=== PATIENT | female | born 1975 | race Caucasian/White ===

== ENCOUNTER 2017-06-29 16:53 | Emergency (ER) | payer BC ==
[2017-06-29] MEDS ORDERED: Sodium Chloride 0.9% 1,000 ML IV SCH (17:00)
--- NOTE | 2017-06-29 18:12 | EDM.PDOC ---
ED HPI GENERAL MEDICAL PROBLEM - General Chief Complaint: Exposure to Heat or Cold Stated Complaint: FELL THROUGH ICE Time Seen by Provider: 06/29/17 18:06 Source of Information: Reports: Patient, EMS, Police History Limitations: Reports: No Limitations - History of Present Illness INITIAL COMMENTS - FREE TEXT/NARRATIVE: pt arrived after [place] They were on a [address] in the middle of the [place] and went through. The pt was able to grab on the ice. Her kept going under and she grabbed him and kept ahold. he did go under several times and ended up getting air lifted to [place]. Onset: Today Duration: Hour(s): Location: Reports: Generalized Improves with: Reports: Other (pt was hypothermic) Associated Symptoms: Reports: Other ( Pt was shivering. She had a 35 or 36 temp on arrival. She had been warmed in the ambulance. 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 ) HEENT: Reports: No Symptoms Respiratory: Reports: No Symptoms Cardiovascular: Reports: No Symptoms Endocrine: Reports: No Symptoms GI/Abdominal: Reports: No Symptoms : Reports: No Symptoms Musculoskeletal: Reports: No Symptoms Skin: Reports: No Symptoms Neurological: Reports: No Symptoms Psychiatric: Reports: Anxiety ED EXAM, GENERAL - Physical Exam Exam: See Below Free Text/Narrative:: pt arrived with a history of going into the [place] with her on a 4 [place]. She was able to keep ahold of jher who kept going under. She was found to have a temp of 36. Exam Limited By: No Limitations General Appearance: Alert, Moderate Distress Ears: Normal TMs Nose: Normal Inspection Throat/Mouth: Normal Inspection Head: Atraumatic Neck: Normal Inspection Respiratory/Chest: No Respiratory Distress Cardiovascular: Regular Rate, Rhythm GI/Abdominal: Soft, Non-Tender (Female) Exam: Deferred Rectal (Female) Exam: Deferred Back Exam: Normal Inspection Extremities: Pallor ( feet were very cold and not painful), Other Neurological: Alert, Oriented, Normal Cognition Course - Vital Signs Last Recorded V/S: Last Vital Signs Temp 36.8 C 06/29/17 17:58 Pulse 118 H 06/29/17 17:58 Resp 16 06/29/17 17:58 BP 114/75 06/29/17 17:58 Pulse Ox 100 06/29/17 17:58 - Orders/Labs/Meds Orders: Active Orders 24 hr Category Date Time Status Sodium Chloride 0.9% [Normal Saline] 1,000 ml Med 06/29/17 17:00 Active IV ASDIRECTED Medication Orders Sodium Chloride (Normal Saline) 1,000 mls @ 999 mls/hr IV ASDIRECTED ARLINE Last Admin: 06/29/17 17:20 Dose: 999 mls/hr Labs: Laboratory Tests 06/29/17 06/29/17 Range/Units 17:13 17:13 WBC 9.2 (4.5-11.0) K/uL RBC 4.84 (3.30-5.50) M/uL Hgb 15.4 H (12.0-15.0) g/dL Hct 45.0 (36.0-48.0) % MCV 93 (80-98) fL MCH 32 H (27-31) pg MCHC 34 (32-36) % Plt Count 288 (150-400) K/uL Neut % (Auto) 70 H (36-66) % Lymph % (Auto) 19 L (24-44) % [place] % (Auto) 8 H (2-6) % Eos % (Auto) 3 (2-4) % Baso % (Auto) 0 (0-1) % Sodium 141 (140-148) mmol/L Potassium 4.2 (3.6-5.2) mmol/L Chloride 103 (100-108) mmol/L Carbon Dioxide 28 (21-32) mmol/L Anion Gap 9.9 (5.0-14.0) mmol/L BUN 15 (7-18) mg/dL Creatinine 0.7 (0.6-1.0) mg/dL Est Cr Clr Drug Dosing 102.85 mL/min Estimated GFR (MDRD) > 60 (>60) Glucose 84 (74-106) mg/dL Calcium 9.1 (8.5-10.1) mg/dL Meds: Medications Generic Name Dose Route Start Last Admin Trade Name Freq PRN Reason Stop Dose Admin Sodium Chloride 1,000 mls @ 999 mls/hr 06/29/17 17:00 06/29/17 17:20 Normal Saline IV 999 mls/hr ASDIRECTED ARLINE Administration - Re-Assessments/Exams Free Text/Narrative Re-Assessment/Exam: 06/29/17 18:13 pt was warmed with warm fluids, bear hugger and warm blankets. Her lab work was normal. 06/29/17 18:18 pt is looking good. her temp is up to normal will plan o discharge. Departure - Departure Time of Disposition: 18:19 Disposition: Home, Self-Care 01 Condition: Fair Clinical Impression: Hypothermia - Discharge Information Referrals: PCP,None [Primary Care Provider] - Forms: ED Department Discharge Care Plan Goals: rtc if problems. - My Orders Last 24 Hours: My Active Orders 06/29/17 17:00 Sodium Chloride 0.9% [Normal Saline] 1,000 ml IV ASDIRECTED - Assessment/Plan Last 24 Hours: My Active Orders 06/29/17 17:00 Sodium Chloride 0.9% [Normal Saline] 1,000 ml IV ASDIRECTED
== END 2017-06-29 19:08 | disposition home or self-care (01) ==
LOC: JP.ED 16:53
DX: T68.XXXA Hypothermia, initial encounter (principal); Z88.8 Allergy status to other drugs, medicaments and biological substances; Z91.09 Other allergy status, other than to drugs and biological substances; X31.XXXA Exposure to excessive natural cold, initial encounter
CPT/HCPCS: 36415; 80048; 85025; 96360; 99283; J7040

== ENCOUNTER 2022-06-24 21:10 | Emergency (ER) | payer BC ==
[2022-06-24] MEDS ORDERED: Phenazopyridine 95 MG Tab PO ONE (21:40)
== END 2022-06-24 22:13 | disposition home or self-care (01) ==
LOC: JP.ED 21:10
DX: N30.00 Acute cystitis without hematuria (principal); Z88.8 Allergy status to other drugs, medicaments and biological substances; Z91.048 Other nonmedicinal substance allergy status
CPT/HCPCS: 81001; 87086; 87088; 87186; 99283; A9270

== ENCOUNTER 2024-04-05 06:13 | Day surgery (SDC) | payer BC ==
[2024-04-05 06:42] LABS: HEMOGLOBIN 13.7 g/dL (11.2-15.5); MEAN CORPUSCULAR HEMOGLOBIN 32.2 pg (31.6-35.5); MEAN CORPUSCULAR HGB CONC 35.1 g/dL (31.6-35.5); MEAN CORPUSCULAR VOLUME 91.8 fL (81.4-99.0); RED BLOOD CELL COUNT 4.25 M/uL (3.77-5.24)
[2024-04-05] MEDS: Nozin Nasal Sanitizer NASBOTH SCH ×2 (06:57→20:59)
[2024-04-05 07:13] LABS: A/G RATIO 1.2 (1.2-2.2); ALANINE AMINOTRANSFERASE,ALT 38 U/L (12-78); ALBUMIN 3.4 g/dL (3.4-5.0); ALKALINE PHOSPHATASE 62 U/L (46-116); ANION GAP 9.6 mmol/L (5.0-14.0); ASPARTATE AMNIOTRANSFERASE,AST 8 U/L (15-37); BILIRUBIN TOTAL 0.7 mg/dL (0.2-1.0); BLOOD UREA NITROGEN,BUN 14 mg/dL (7-18); CARBON DIOXIDE,CO2 26 mmol/L (21-32); CHLORIDE,CL 106 mmol/L (100-108); CREATININE 0.8 mg/dL (0.6-1.0); EST CRCL DRUG DOSING (CG) 83.63 mL/min; ESTIMATED GFR 91 mL/min (>60); GLUCOSE RANDOM 86 mg/dL (74-106); POTASSIUM,K 3.6 mmol/L (3.6-5.2); PROTEIN TOTAL,TP 6.2 g/dL (6.4-8.2); SODIUM,NA 142 mmol/L (140-148)
[2024-04-05] MEDS ORDERED: fentaNYL 100 MCG/2 ML SDV ONE ×4 (07:19→10:41)
[2024-04-05] MEDS ORDERED: Propofol 200 MG/20 ML SDV ONE ×6 (07:19→10:20)
[2024-04-05] MEDS ORDERED: Midazolam 1 MG/ML 2 ML SDV ONE ×2 (07:19→09:10)
[2024-04-05] MEDS: Lactated Ringers 1,000 ML IV SCH (07:27)
[2024-04-05] MEDS: ceFAZolin 2 GM in Premix Bag 1 BAG IV ONE (07:45)
[2024-04-05] MEDS ORDERED: Lactated Ringers 1,000 ML ONE (08:56)
[2024-04-05] MEDS: Bupivacaine 0.5% 50 ML MDV ONE (10:55)
[2024-04-05] MEDS ORDERED: Magnesium Hydroxide 400 MG/5 ML Susp 30 ML Cup PO PRN (11:05)
[2024-04-05] MEDS ORDERED: Morphine 2 MG/ML SYRINGE IVPUSH PRN (11:05)
[2024-04-05] MEDS ORDERED: Docusate Sodium 100 MG Cap PO PRN (11:05)
[2024-04-05] MEDS ORDERED: Ondansetron 4 MG/2 ML SDV IVPUSH PRN (11:05)
[2024-04-05] MEDS ORDERED: oxyCODONE 5 MG Tab PO PRN (11:08)
[2024-04-05] MEDS ORDERED: LORazepam 0.5 MG Tab PO PRN (11:09)
[2024-04-05] MEDS ORDERED: EPINEPHrine 1 MG/ML SDV IM PRN (12:15)
[2024-04-05] MEDS: Acetaminophen 325 MG Tab PO SCH (12:54)
[2024-04-05] MEDS: oxyCODONE 5 MG Tab PO PRN (12:54)
[2024-04-05] MEDS: Ketorolac 30 MG/ML SDV IVPUSH PRN (12:54)
[2024-04-05] MEDS: ceFAZolin 2 GM in Premix Bag 1 BAG IV SCH (15:13)
[2024-04-05] MEDS: Sodium Chloride 0.9% 1,000 ML IV SCH (15:14)
[2024-04-05] MEDS ORDERED: Topiramate 25 MG Tab PO SCH (21:00)
[2024-04-05] MEDS: acetaZOLAMIDE 250 MG Tab PO SCH (21:01)
[2024-04-05] MEDS: Cetirizine 10 MG Tab PO SCH (21:01)
[2024-04-05] MEDS: Montelukast 10 MG Tab PO SCH (21:01)
[2024-04-05] MEDS: Metoprolol Tartrate 25 MG Tab PO SCH (21:01)
[2024-04-06] MEDS ORDERED: PHENTERMINE HCL 30 MG PO SCH (09:00)
[2024-04-06] MEDS ORDERED: Lidocaine 4% 1 each Patch TOP SCH (09:00)
[2024-04-06] MEDS: Aspirin 325 MG Tab.EC PO SCH (09:17)
== END 2024-04-06 11:32 ==
LOC: JP.SDS 06:13 → JP.MS 11:06 → JP.SDS 04-06 11:32
PROVIDERS: ATTEND Specialist
DX: M17.12 Unilateral primary osteoarthritis, left knee (principal); T84.490A Other mechanical complication of muscle and tendon graft, initial encounter; S83.512A Sprain of anterior cruciate ligament of left knee, initial encounter
CPT/HCPCS: 01400; 27446; 29888; 36415; 73560; 80053; 85027; 97110; 97116; 97161; A9270; C1713; C1762; C1776; J0665; J0690; J1885; J2250; J2704; J3010; J7030; J7120

== ENCOUNTER 2024-06-02 08:00 | Inpatient (IN) | payer BC ==
[2024-06-02 08:34] LABS: BASOPHILS ABSOLUTE AUTO 0.06 K/uL (0.00-0.10); BASOPHILS PERCENT AUTO 0.9 % (0.1-1.3); EOSINOPHILS ABSOLUTE AUTO 0.21 K/uL (0.00-0.40); EOSINOPHILS PERCENT AUTO 3.3 % (0.0-5.4); HEMATOCRIT 41.9 % (34.3-46.0); HEMOGLOBIN 14.1 g/dL (11.2-15.5); IMMATURE GRAN ABSOLUTE AUTO 0.03 K/uL (0.00-0.23); IMMATURE GRAN PERCENT AUTO 0.5 % (0.0-0.7); LYMPHOCYTES ABSOLUTE AUTO 1.81 K/uL (0.8-3.3); LYMPHOCYTES PERCENT AUTO 28.3 % (11.4-47.7); MEAN CORPUSCULAR HEMOGLOBIN 31.3 pg (31.6-35.5); MEAN CORPUSCULAR HGB CONC 33.7 g/dL (31.6-35.5); MEAN CORPUSCULAR VOLUME 92.9 fL (81.4-99.0); MONOCYTES ABSOLUTE AUTO 0.52 K/uL (0.20-0.90); MONOCYTES PERCENT AUTO 8.1 % (3.3-12.6); NEUTROPHILS ABSOLUTE AUTO 3.77 K/uL (1.0-7.6); NEUTROPHILS PERCENT AUTO 58.9 % (40.0-78.1); PLATELET COUNT,PLT 278 K/uL (130-375); RED BLOOD CELL COUNT 4.51 M/uL (3.77-5.24); WHITE BLOOD CELL COUNT,WBC 6.4 K/uL (3.2-11.0)
[2024-06-02 08:48] LABS: ANION GAP 10.2 mmol/L (5.0-14.0); CALCIUM 9.4 mg/dL (8.5-10.1); CREATININE 0.8 mg/dL (0.6-1.0); EST CRCL DRUG DOSING (CG) 80.51 mL/min; POTASSIUM,K 3.6 mmol/L (3.6-5.2)
[2024-06-02] MEDS: Nozin Nasal Sanitizer NASBOTH ONE (08:52)
[2024-06-02] MEDS ORDERED: LORazepam 0.5 MG Tab PO PRN (09:18)
[2024-06-02] MEDS ORDERED: Magnesium Hydroxide 400 MG/5 ML Susp 30 ML Cup PO PRN (09:19)
[2024-06-02] MEDS ORDERED: Ondansetron 4 MG/2 ML SDV IVPUSH PRN (09:19)
[2024-06-02] MEDS: Lactated Ringers 1,000 ML IV SCH (09:31)
[2024-06-02] MEDS ORDERED: oxyCODONE 5 MG Tab PO PRN (11:00)
[2024-06-02] MEDS ORDERED: fentaNYL 100 MCG/2 ML SDV ONE ×2 (11:15→13:23)
[2024-06-02] MEDS ORDERED: Propofol 200 MG/20 ML SDV ONE ×4 (11:16→13:01)
[2024-06-02] MEDS ORDERED: Midazolam 1 MG/ML 2 ML SDV ONE (11:16)
[2024-06-02] MEDS ORDERED: Lactated Ringers 1,000 ML ONE (12:01)
[2024-06-02] MEDS: ceFAZolin 2 GM in Premix Bag 1 BAG IV ONE (12:10)
[2024-06-02] MEDS: Tranexamic Acid 880 MG in Sodium Chloride 0.9% 50 ML IV ONE (12:11)
[2024-06-02] MEDS: Bupivacaine 0.5% 50 ML MDV ONE (12:17)
[2024-06-02] MEDS ORDERED: EPINEPHrine 1 MG/ML SDV IM PRN (14:24)
[2024-06-02] MEDS: Ketorolac 15 MG/ML SDV IVPUSH PRN (15:19)
[2024-06-02] MEDS: oxyCODONE 5 MG Tab PO PRN (15:24)
[2024-06-02] MEDS: Acetaminophen 325 MG Tab PO SCH (16:21)
[2024-06-02] MEDS: Sodium Chloride 0.9% 1,000 ML IV SCH (16:55)
[2024-06-02] MEDS: ceFAZolin 2 GM in Premix Bag 1 BAG IV SCH (20:19)
[2024-06-02] MEDS: Montelukast 10 MG Tab PO SCH (20:29)
[2024-06-02] MEDS: Nozin Nasal Sanitizer NASBOTH SCH (20:29)
[2024-06-02 21:12] LABS: BASOPHILS ABSOLUTE AUTO 0.04 K/uL (0.00-0.10); BASOPHILS PERCENT AUTO 0.3 % (0.1-1.3); EOSINOPHILS ABSOLUTE AUTO 0.08 K/uL (0.00-0.40); EOSINOPHILS PERCENT AUTO 0.6 % (0.0-5.4); HEMATOCRIT 35.5 % (34.3-46.0); HEMOGLOBIN 12.2 g/dL (11.2-15.5); IMMATURE GRAN ABSOLUTE AUTO 0.05 K/uL (0.00-0.23); IMMATURE GRAN PERCENT AUTO 0.4 % (0.0-0.7); LYMPHOCYTES ABSOLUTE AUTO 1.61 K/uL (0.8-3.3); LYMPHOCYTES PERCENT AUTO 11.4 % (11.4-47.7); MEAN CORPUSCULAR HEMOGLOBIN 32.1 pg (31.6-35.5); MEAN CORPUSCULAR HGB CONC 34.4 g/dL (31.6-35.5); MEAN CORPUSCULAR VOLUME 93.4 fL (81.4-99.0); MONOCYTES ABSOLUTE AUTO 1.34 K/uL (0.20-0.90); MONOCYTES PERCENT AUTO 9.5 % (3.3-12.6); NEUTROPHILS PERCENT AUTO 77.8 % (40.0-78.1); PLATELET COUNT,PLT 244 K/uL (130-375); WHITE BLOOD CELL COUNT,WBC 14.1 K/uL (3.2-11.0)
[2024-06-02] MEDS: Morphine 2 MG/ML SYRINGE IVPUSH PRN (21:25)
[2024-06-02] MEDS: Sodium Chloride 0.9% 500 ML IV ONE (21:33)
[2024-06-03] MEDS: Aspirin 325 MG Tab.EC PO SCH (08:49)
[2024-06-03] MEDS: Metoprolol Tartrate 25 MG Tab PO SCH (08:55)
[2024-06-03] MEDS: acetaZOLAMIDE 250 MG Tab PO SCH (08:55)
[2024-06-03] MEDS ORDERED: Sodium Chloride 0.9% 10 ML Syringe IV PRN (10:11)
[2024-06-03] MEDS: oxyCODONE 5 MG Tab PO PRN (11:05)
[2024-06-03] MEDS: tiZANidine 2 MG Tab PO PRN (13:48)
[2024-06-03] MEDS: POTASSIUM CITRATE 15 MEQ PO SCH (21:21)
[2024-06-04] MEDS: Docusate Sodium 100 MG Cap PO PRN (07:36)
== END 2024-06-04 12:50 | disposition home or self-care (01) | DRG 302 ==
LOC: JP.SDS 08:00 → JP.ICU 09:19 → JP.MS 09:19 → JP.SDS 06-03 13:04 → JP.MS 06-03 13:06
PROVIDERS: ADMIT Specialist; ATTEND Specialist
PROC: 0SRC069 Replacement of Right Knee Joint with Oxidized Zirconium on Polyethylene Synthetic Substitute, Cemented, Open Approach (ICD-10-PCS; principal; 2024-06-02 10:30)
DX: M17.11 Unilateral primary osteoarthritis, right knee (principal); I10 Essential (primary) hypertension; I95.1 Orthostatic hypotension
CPT/HCPCS: 01402-QZ; 36415; 73560-26-RT; 73560-RT; 80048; 85025; 97110-GP; 97116-GP; 97161-GP; 97530-GP; A9270-GY; C1713; C1776; J0665; J0690; J1885; J2250; J2270; J2704; J3010; J3490; J7030; J7040; J7120